=== PATIENT | female | born 1960 | race Caucasian/White ===

== ENCOUNTER 2023-12-03 08:53 | Emergency (ER) | payer OTHER, SELFPAY ==
--- NOTE | ~2023-12-03 | CT_ITS ---
CT HEAD WITHOUT IV CONTRAST CT CERVICAL SPINE WITHOUT IV CONTRAST CT MAXILLOFACIAL WITHOUT IV CONTRAST INDICATION: Frontal head strike. Fall. COMPARISON: None available. TECHNIQUE: Multidetector CT acquisitions of the head, maxillofacial region, and cervical spine were obtained without IV contrast. Multiplanar reformats were acquired and utilized for image interpretation. This CT examination was performed using dose optimization techniques as appropriate, variously including the following: *Automated exposure control *Adjustment of mA and/or kV according to patient size (this includes techniques or standardized protocols for targeted exams where dose is matched to indication/reason for exam; i.e. extremities or head) *Use of iterative reconstruction technique FINDINGS: HEAD: There is no intracranial hemorrhage, hydrocephalus, extra-axial surface collection, midline shift, or other herniation pattern. Glynn to white matter differentiation is diffusely maintained without evidence of an evolved acute territorial infarct. The basilar cisterns are preserved. No significant soft tissue abnormality. No acute osseous abnormality. The paranasal sinuses and the mastoid air cells are well aerated. MAXILLOFACIAL: There is right malar/periorbital soft tissue swelling. No acute maxillofacial fractures. CERVICAL SPINE: There are postoperative changes following ACDF at the C4-C6 levels. Surgical hardware is intact and there is solid interbody arthrodesis at the postoperative levels. There is multilevel hypertrophic facet arthropathy. Multiple cervical facets are fused. There are no acute fractures and there are no acute subluxations. Hypertrophic degenerative changes involving the atlantodental interval. There is no prevertebral soft tissue swelling. There is an 8mm irregular shaped nodule at the partially imaged right lung apex. Follow-up with a diagnostic CT of the chest is recommended to establish further follow-up recommendations. CT/CT cervical spine wo IV con IMPRESSION: - No acute intracranial abnormality. - No acute osseous abnormality within the cervical spine. ACDF changes at C4-C6. - No acute osseous abnormality within the maxillofacial region. - There is an 8mm irregular shaped nodule at the partially imaged right lung apex. Follow-up with a diagnostic CT of the chest is recommended to establish further follow-up recommendations.
[2023-12-03 09:02] VITALS: BP 153/50; PULSE 79; RESP 16; TEMP 36.5; O2SAT 94; BMI 24.1
--- NOTE | 2023-12-03 09:59 | ED.FALL ---
HPI - Fall General Chief Complaint: Fall Stated Complaint: Fall 12/02/23 - eye injury Time Seen by Provider: 12/03/23 09:58 Source: patient, family () and RN notes reviewed Mode of arrival: ambulatory Limitations: no limitations History of Present Illness HPI Narrative: 63 year old female with pmhx significant for COPD, previous tobacco smoker with 30 pack-year history presents to the ED today for evaluation facial pain/bruising and headache s/p mechanical fall with head strike occurring at 2130 last night. She states that she was using the bathroom at a club and while squatting over the toilet seat, she lost her balance and fell to the right side, striking the right side of her face/head on the sink. She reports immediate pain and bleeding around the right eye. Denies LOC. Not on AC. She did not seek medical attention yesterday. Admits to calling urgent care this morning who advised her to come to the ED for evaluation. At present she endorses headache and pain under her right eye. Denies dizziness, vision changes including blurred vision, double vision or vision loss, pain with eye movements, nausea or vomiting, epistaxis, confusion. Related Data Allergies Allergy/AdvReac Type Severity Reaction Status Date / Time tramadol AdvReac Vomiting Verified 12/03/23 09:09 Review of Systems Review of Systems: Constitutional: No fever, chills, fatigue, night sweats, weight changes ENT/Mouth: No ear pain, hearing loss, nasal congestion, sinus pain, rhinorrhea, sore throat, + bruising and pain to right periorbital region Eyes: No eye pain, swelling, redness, vision changes, discharge Cardio: No chest pain, palpitations, PHILLIPS, orthopnea, peripheral edema Pulm: No SOB, cough, sputum, wheezing, dyspnea, hemoptysis GI: No nausea, vomiting, hematemesis, abdominal pain, diarrhea, constipation, hematochezia, melena : No irregular bleeding, dysuria, frequency, urgency, hesitancy, hematuria, flank pain, urinary flow changes, urinary incontinence or retention MSK: No back pain, neck pain, joint pain, myalgias Skin: No lesions, rashes Neuro: No weakness, numbness, paresthesias, LOC, dizziness, headache Psych: No anxiety/panic, depression, SI/HI, AH/VH All other systems reviewed and are negative. [facility] Past Medical History Attestation statement: The following information was validated with the patient. Source: old records reviewed and nursing notes reviewed Social History Social History Smoked in Last 30 Days: No Use of substances other than those prescribed or required for medical reasons: No Advance Directives: Yes Advance Directives Information Provided: Yes Advance Directives on File: No Physical Exam Vital Signs: Vital Signs: Last Vital Signs Temp 97.1 F 12/03/23 12:07 Pulse 61 12/03/23 12:07 Resp 16 12/03/23 12:07 BP 142/68 H 12/03/23 12:07 Pulse Ox 99 12/03/23 12:07 O2 Del Method Room Air 12/03/23 12:07 BMI result Body Mass Index 24.1 Patient hypertensive, vitals otherwise WNL Const: General: cooperative, healthy appearing, comfortable and no acute distress Orientation/consciousness: patient oriented x3 Limitations: no limitations HEENT: Head: Yes No palpable skull fracture present, No Shipman's sign, No hematoma, No raccoon eyes and Yes periorbital ecchymosis General nose exam: Normal external nose present and Normal septum present Eyes: Other: + ecchymosis noted to the lateral and inferior periorbital region of right eye. Small healing 1 cm laceration to the lateral periorbital region. No active bleeding. No hyphema. No enophthalmos. No conjunctival injection or hemorrhage. EOMs intact bilaterally without pain or entrapment. PERRLA. Neck: Other: + no midline cervical spinous tenderness or step-off deformity Neck: Yes normal visual inspection and Yes full ROM Chest: Chest palpation & inspection: normal inspection of the chest and normal palpation of entire chest wall Resp: Effort & Inspection: normal respiratory effort Auscultation: clear to auscultation bilaterally Cardio: Rate: regular rate Rhythm: regular rhythm GI: Inspection: Yes normal to inspection and No abdominal wall ecchymosis Back/Spine/Pelvis: Other: No midline spinous tenderness or step off deformity. No paraspinal muscle tenderness. Skin: General skin exam: no rashes or lesions noted Neuro: General: patient oriented x3 and moves all extremities Extrem: General: Yes normal to inspection Course Course Course Narrative: 1230-- CT scan of head/brain does not demonstrate acute bleed or skull fracture. CT scan of C-spine shows intact cervical hardware without acute fracture or malalignment. CT scan of facial bones is not demonstrate acute fracture. There is an incidental finding of an 8 mm irregularly shaped nodule noted to the right lung apex. This is concerning given patient's 30 pack-year history. I discussed this finding with my attending physician, Dr. Hardy who has also reviewed CT scan. > results of the CT scan were discussed with patient. She does currently follow with a bale tie machine operator and gets yearly chest scans. Last scan was a few months ago. She states that she is aware of some nodules within her lungs however she is not sure if she is aware of this specific nodule. I had an in-depth discussion with the patient and her regarding these results and the importance of following up with either her PCP or bale tie machine operator this week for further workup as we can not rule out cancer today. She verbalizes understanding and has plans to call her bale tie machine operator tomorrow morning. I have provided her with a printout of the CT scan as her bale tie machine operator is not associated with [facility]. I had patient repeat back to me everything that was discussed today to ensure that she understands it. She currently denies night sweats, chills, increased shortness of breath or difficulty breathing, chest pain, unintentional weight loss. > advised patient to ice her face to help with swelling. Informed her that she may have a concussion and discussed worrisome signs and symptoms/when to return to the ED. she has remained stable throughout visit today. All questions answered at this time. I believe that patient is stable for discharge home with prompt pulmonology follow-up. She is agreeable with disposition. Medications Administered Discontinued Medications Generic Name Dose Route Start Last Admin Trade Name Freq PRN Reason Stop Dose Admin Acetaminophen 975 mg 12/03/23 10:24 12/03/23 10:38 Acetaminophen 325 Mg Tablet PO 12/03/23 10:25 975 mg ONCE ONE Administration Medical Decision Making Medical Decision Making [facility] Narrative: 63 year old female with pmhx significant for COPD, previous tobacco smoker with 30 pack-year history presents to the ED today for evaluation facial pain/bruising and headache s/p mechanical fall with head strike occurring at 2130 last night. Patient hypertensive, vitals otherwise WNL. Patient is nontoxic-appearing and in no acute distress. Exam nonfocal. Cerebellum intact. No palpable skull fracture or hematoma. No shipman sign. ecchymosis noted to the lateral and inferior periorbital region of right eye. Small healing 1 cm laceration to the lateral periorbital region. No active bleeding. No hyphema. No enophthalmos. No conjunctival injection or hemorrhage. EOMs intact bilaterally without pain or entrapment. PERRLA. Differential diagnosis includes headache, migraine, concussion, contusion, hematoma, ICH. Lower suspicion for facial fracture, blowout fracture, globe rupture, hyphema, corneal abrasion, foreign body. Plan for imaging and pain control. Differential Diagnosis Differential Diagnoses: The differential diagnosis associated with the presentation includes As above Admission/Observation Not indicated Independent Interpretation I performed an independent interpretation of an: CT Scan Interpretation: I have personally reviewed CT scan of head/brain, cervical spine and facial bones and agree with radiologist's interpretation. Radiology Impression Discussion of test interpretation with radiology: I have reviewed the radiologist's reading. Radiologist Impression: CT HEAD WITHOUT IV CONTRAST CT CERVICAL SPINE WITHOUT IV CONTRAST CT MAXILLOFACIAL WITHOUT IV CONTRAST INDICATION: Frontal head strike. Fall. COMPARISON: None available. TECHNIQUE: Multidetector CT acquisitions of the head, maxillofacial region, and cervical spine were obtained without IV contrast. Multiplanar reformats were acquired and utilized for image interpretation. This CT examination was performed using dose optimization techniques as appropriate, variously including the following: *Automated exposure control *Adjustment of mA and/or kV according to patient size (this includes techniques or standardized protocols for targeted exams where dose is matched to indication/reason for exam; i.e. extremities or head) *Use of iterative reconstruction technique FINDINGS: HEAD: There is no intracranial hemorrhage, hydrocephalus, extra-axial surface collection, midline shift, or other herniation pattern. Glynn to white matter differentiation is diffusely maintained without evidence of an evolved acute territorial infarct. The basilar cisterns are preserved. No significant soft tissue abnormality. No acute osseous abnormality. The paranasal sinuses and the mastoid air cells are well aerated. MAXILLOFACIAL: There is right malar/periorbital soft tissue swelling. No acute maxillofacial fractures. CERVICAL SPINE: There are postoperative changes following ACDF at the C4-C6 levels. Surgical hardware is intact and there is solid interbody arthrodesis at the postoperative levels. There is multilevel hypertrophic facet arthropathy. Multiple cervical facets are fused. There are no acute fractures and there are no acute subluxations. Hypertrophic degenerative changes involving the atlantodental interval. There is no prevertebral soft tissue swelling. There is an 8mm irregular shaped nodule at the partially imaged right lung apex. Follow-up with a diagnostic CT of the chest is recommended to establish further follow-up recommendations. CT/CT head/brain wo IV con IMPRESSION: - No acute intracranial abnormality. - No acute osseous abnormality within the cervical spine. ACDF changes at C4-C6. - No acute osseous abnormality within the maxillofacial region. - There is an 8mm irregular shaped nodule at the partially imaged right lung apex. Follow-up with a diagnostic CT of the chest is recommended to establish further follow-up recommendations. Independent Historian Clinical information obtained from an independent historian. History obtained from or confirmed by: Spouse () Prescription Management I considered prescription management with: Pain Medication Chronic Conditions Patient?s care impacted by: Other (COPD) Social Determinants Patient?s care significantly limited by Social Determinants of Health including: Other Social Determinant of Health Discharge Plan Discharge Clinical Impression: Traumatic ecchymosis of face, Concussion without loss of consciousness, Nodule of apex of right lung Patient Disposition: Home, Self-Care Instructions: Concussion (ED), Contusion in Adults (ED), Pulmonary Nodules (ED), Facial Contusion (ED), Needle Biopsy of the Lung (DC) Additional Instructions: The CT scan of your head/brain does not demonstrate acute bleed or skull fracture. The CT scan of your neck does not demonstrate fracture. The CT scan of her facial bones does not demonstrate fracture. You may apply ice to the face to help with healing/ pain for 20 minutes at a time. You have a concussion. The recommendation is lots of brain rest. Avoid excessive screen time such as television or phone. On CT scan, there is an incidental finding of 8 mm irregularly shaped nodule at the top of your right lung. These results were discussed with you in depth. As you have a history of smoking tobacco along with COPD, it is very important that you follow-up with your primary care provider or bale tie machine operator this week for further imaging/workup. You have been provided with a printout of the CT scan results. Please return to the ED with new or worsening symptoms such as confusion, nausea vomiting, or behavioral changes. In the case of an emergency call [phone]. Referrals: [facility] Pulmonology Services [Provider Group]
[2023-12-03] MEDS: Acetaminophen 325 MG TABLET 975 MG PO (10:38)
--- NOTE | 2023-12-03 10:41 | PC.NURSE ---
provided ice pack for pt to place on R eye
[2023-12-03 12:07] VITALS: BP 142/68; PULSE 61; RESP 16; TEMP 36.2; O2SAT 99
[2023-12-03 13:21] VITALS: BP 142/68; PULSE 61; RESP 16; TEMP 36.2; O2SAT 99
== END 2023-12-03 13:22 | disposition home or self-care (01) ==
PROVIDERS: Emergency Provider Emergency Medicine; PCP Internal Medicine
DX: S06.0X0A Concussion without loss of consciousness, initial encounter (principal); S00.83XA Contusion of other part of head, initial encounter; R91.1 Solitary pulmonary nodule; J44.9 Chronic obstructive pulmonary disease, unspecified; Z87.891 Personal history of nicotine dependence; W18.30XA Fall on same level, unspecified, initial encounter; Y93.9 Activity, unspecified; Y92.89 Other specified places as the place of occurrence of the external cause; Y99.9 Unspecified external cause status
CPT/HCPCS: 70450; 70486; 72125; 99284